=== PATIENT | female | born 1965 | race Caucasian/White ===

== ENCOUNTER → 2017-07-28 19:30 | Outpatient (CLI) | payer MEDICAID, SELFPAY | PROVIDERS: Family Provider Student in an Organized Health Care Education/Training Program; PCP Student in an Organized Health Care Education/Training Program; Visit Provider Student in an Organized Health Care Education/Training Program | DX: G47.33 Obstructive sleep apnea (adult) (pediatric) (principal) | CPT/HCPCS: 95810 ==

== ENCOUNTER → 2017-09-15 20:04 | Outpatient (CLI) | payer MEDICAID, SELFPAY | PROVIDERS: Family Provider Student in an Organized Health Care Education/Training Program; PCP Student in an Organized Health Care Education/Training Program; Visit Provider Student in an Organized Health Care Education/Training Program | DX: G47.33 Obstructive sleep apnea (adult) (pediatric) (principal) | CPT/HCPCS: 95811 ==

== ENCOUNTER 2017-11-20 19:49 | Emergency (ER) | payer MEDICAID, SELFPAY ==
[2017-11-20 19:49] VITALS: BP 150/88; PULSE 79; RESP 15; TEMP 37.1; BMI 45.6
--- NOTE | 2017-11-20 20:10 | RAD_ITS ---
STUDY: X-RAY - LEFT KNEE REASON FOR EXAM: Female, 51 years old. Pain after trauma TECHNIQUE: 3 view(s) of the knee. COMPARISON: None. FINDINGS: Normal visualized distal femur. Normal visualized proximal tibia and fibula. Normal proximal tibiofibular articulation. There is moderate degenerative arthrosis of the medial femorotibial compartment with moderate joint space narrowing. Normal lateral femorotibial compartment. There is moderate degenerative arthrosis of the patellofemoral articulation. The soft tissue structures are unremarkable. RAD/Knee 3 Views IMPRESSION: Degenerative arthrosis. Electronically Signed: Yovany Mendieta MD at 20:35 EDT , Service support ,
--- NOTE | 2017-11-20 20:12 | ED.VISSUMM ---
- ER Visit Summary Date of Service: 11/20/17 Chief Complaint: Left knee pain History of Present Illness: The patient is a 51 F yesterday was working in yard accidentally stepped in a hole and twisted her left knee. Today having more pain. He is able to ambulate but causes increasing pain. No prior history of left knee surgery or significant injury. She has had prior scopes to her right knee secondary to meniscal tear. She denies any hip or ankle pain. Denies other injuries. Physical Examination: Well-appearing middle-age female. Vital signs stable and afebrile. No acute distress. H EENT exam unremarkable. Lungs clear to auscultation. Heart regular rate and rhythm no murmur. Abdomen soft nontender. She is moving all 4 extremities. They are neurovascularly intact. Her left hip ankle and foot are nontender neurovascular intact with normal range of motion. Positive DP pulse. Dorsi plantar flexion intact the left foot. Left knee has pain to palpation over the joint line primarily laterally. There is no significant effusion or swelling. No redness or warmth. ACL, PCL, LCL and MCL all appear to be intact. No bony deformity. She is able to flex and extend. Good endpoints on stressing of the ligaments. Neurologic exam normal. Test Results: Left knee x-ray no acute abnormality. No fracture or dislocation. I did go over the films with the patient. She understands that ligaments, tendons and cartilage injuries are not seen on a plain film. She will follow-up for further evaluation and potentially additional imaging if this does not improve. Emergency Department Course and Treatment: Repeat exam doing well at 2042. Treatment Plan: Follow-up with Dr. Rom Purdy [facility] with orthopedic physician who she is seen for in the past for her right knee. Disposition: Discharge Impression: Acute left knee pain after twisting Left knee sprain rule out internal derangement This note was generated with [employer] dictation software. It may contain incorrect words, spelling, and punctuation that were not noted in review of the chart prior to signing ED Disposition - Plan for ED Patient: Chief Complaint: Lower Extremity Injury Referrals: Magdy Del Cid DO [Primary Care Provider] -
--- NOTE | 2017-11-20 20:45 | ED.DEP ---
ED Disposition - Plan for ED Patient: Disposition: Home or Assisted Living Chief Complaint: Lower Extremity Injury Instructions: ED Sprain Knee Prescriptions: Hydrocodone/Acetaminophen [[place] 7.5-325 Tablet] 1 ea PO Q4H PRN PRN #20 tab PRN Reason: Pain Referrals: Rom Purdy MD [STAFF PHYSICIAN] - As soon as possible Additional Instructions: Ice and elevate left knee. Motrin and limited [place] for pain and inflammation. Use crutches as needed. Follow-up with Dr. Charbel Purdy of [facility] orthopedics for further evaluation and possible advanced imaging if not improving to rule out an internal derangement of the knee.
--- NOTE | 2017-11-20 20:48 | DCINST.ED_ITS ---
ED Disposition - Plan for ED Patient: Disposition: Home or Assisted Living Chief Complaint: Lower Extremity Injury Instructions: ED Sprain Knee Prescriptions: Hydrocodone/Acetaminophen [[place] 7.5-325 Tablet] 1 ea PO Q4H PRN PRN #20 tab PRN Reason: Pain Referrals: Rom Purdy MD [STAFF PHYSICIAN] - As soon as possible Additional Instructions: Ice and elevate left knee. Motrin and limited [place] for pain and inflammation. Use crutches as needed. Follow-up with Dr. Charbel Purdy of [facility] orthopedics for further evaluation and possible advanced imaging if not improving to rule out an internal derangement of the knee.
--- NOTE | 2017-11-20 21:01 | NURSING ---
PT STATES THAT SHE HAS HAD NORCO IN THE PAST AND NO PROBLEMS WITH THIS MEDICATION.
[2017-11-20] MEDS: HYDROcodone Bitartrate/Apap 5/325 Tablet PO (21:09)
== END 2017-11-20 21:10 | disposition home or self-care (01) ==
PROVIDERS: Emergency Provider Emergency Medicine; Family Provider Student in an Organized Health Care Education/Training Program; PCP Student in an Organized Health Care Education/Training Program
DX: S83.92XA Sprain of unspecified site of left knee, initial encounter (principal); X50.1XXA Overexertion from prolonged static or awkward postures, initial encounter; Y93.9 Activity, unspecified; Y92.89 Other specified places as the place of occurrence of the external cause; Y99.9 Unspecified external cause status; E78.00 Pure hypercholesterolemia, unspecified; Z85.528 Personal history of other malignant neoplasm of kidney
CPT/HCPCS: 73562; 99283

== ENCOUNTER 2018-08-10 02:47 | Emergency (ER) | payer MEDICAID, SELFPAY ==
[2018-08-10 02:49] VITALS: BP 166/96; PULSE 84; RESP 15; TEMP 37.5; O2SAT 97; BMI 44.2
[2018-08-10] MEDS: Loperamide 2 MG Capsule 4 MG PO (03:16)
[2018-08-10] MEDS: 0.9% Normal Saline 1,000 ML 999 ML IV (03:17)
[2018-08-10] MEDS: Ondansetron 4 MG/2 ML Vial IV (03:17)
[2018-08-10 03:18] LABS: Anion Gap 10 (5-15); BUN 23 mg/dL (7-18); BUN/Creat Ratio 22.8 RATIO (10-20); Calcium,Total 8.5 mg/dL (8.5-10.1); Chloride 105 mmol/L (98-107); Creatinine, Serum 1.01 mg/dL (0.55-1.02); EST Glomerular Filtration Rate 61 mL/min (>60); Est Glom Filt Rate - Afr Amer 74 mL/min (>60); Estimated Creatinine Clearance 65.73 ml/min; Glucose 119 mg/dL (74-106); Sodium Level 140 mmol/L (136-145)
[2018-08-10 03:19] VITALS: TEMP 37.2
--- NOTE | 2018-08-10 03:59 | ED.VISSUMM ---
- ER Visit Summary Date of Service: 08/10/18 Chief Complaint: Nausea vomiting and diarrhea History of Present Illness: The patient is a 52 F who presents with nausea vomiting diarrhea. This all he began acutely about 6 hours before presentation. She reports greater than 20 episodes of nonbloody nonbilious emesis. She also reports moderate diarrhea. She denies any abdominal pain. She did have some cramping earlier but this is resolved. No fevers. She has had a client with similar symptoms. Physical Examination: Afebrile vitals unremarkable Moist mucous membranes Heart regular rate and rhythm Lungs are clear Abdomen soft Alert Test Results: BMP unremarkable. Emergency Department Course and Treatment: Patient was treated here with IV fluids, Zofran, Imodium. She does feel better on reevaluation. She has had no further vomiting since antiemetics. I explained this is most likely a self-limited viral gastroenteritis. She has Phenergan already at home. She understands to return for new or worsening symptoms. All questions answered bedside. Patient agreeable to this plan was discharged home. Treatment Plan: [] Disposition: Discharge Impression: Gastroenteritis This note was generated with [employer] dictation software. It may contain incorrect words, spelling, and punctuation that were not noted in review of the chart prior to signing ED Disposition - Plan for ED Patient: Instructions: ED Gastroenteritis Viral Referrals: Magdy Del Cid DO [Primary Care Provider] -
[2018-08-10 04:12] VITALS: BP 131/67; PULSE 100; RESP 18; O2SAT 95
== END 2018-08-10 04:50 | disposition home or self-care (01) ==
LOC: ED 03:16
PROVIDERS: Emergency Provider Emergency Medicine; Family Provider Student in an Organized Health Care Education/Training Program; PCP Student in an Organized Health Care Education/Training Program
DX: A08.4 Viral intestinal infection, unspecified (principal); Z72.0 Tobacco use
CPT/HCPCS: 80048; 96361; 96374; 99285; J7030; A4216; J2405

== ENCOUNTER → 2018-11-16 11:20 | Outpatient (CLI) | payer MEDICAID, SELFPAY ==
[2018-11-16 10:53] VITALS: BMI 44.2
[2018-11-16 12:00] LABS: ALB/GLOB Ratio 0.8 RATIO (0.9-2.4); AST(SGOT) 25 U/L (15-37); Alanine Aminotransfer ALT/SGPT 29 U/L (13-56); Albumin, Serum 3.6 g/dL (3.2-5.0); Alkaline Phosphatase 104 U/L (45-117); Anion Gap 5 (5-15); BUN 14 mg/dL (7-18); BUN/Creat Ratio 14.7 RATIO (10-20); Calcium,Total 8.9 mg/dL (8.5-10.1); Chloride 103 mmol/L (98-107); Creatinine, Serum 0.95 mg/dL (0.55-1.02); EST Glomerular Filtration Rate 65 mL/min (>60); Est Glom Filt Rate - Afr Amer 79 mL/min (>60); Globulin 4.3 g/dL (2.2-4.2); Glucose 87 mg/dL (74-106); Potassium 4.2 mmol/L (3.5-5.1); Protein, Total 7.9 g/dL (6.4-8.2); Sodium Level 139 mmol/L (136-145)
[2018-11-16 12:02] LABS: Hematocrit 41.7 % (37-47); Hemoglobin 14.2 g/dl (12.0-15.0); White Blood Count 9.3 K/mm3 (4.4-11.0)
[2018-11-16 12:03] LABS: Mean Corp Hgb Conc 34.1 g/gl (32-36); Mean Corpuscular Hgb 30.9 pg (27.0-32.0); Mean Corpuscular Volume 90.7 fL (81-99); Mean Platelet Vol. 10.5 fl (6.2-12.0); Platelet Count 297 K/mm3 (150-450); RBC Distribution Width CV 12.6 % (11.6-14.6); RBC Distribution Width SD 41.5 fl (35.1-43.9); Scan Indicated on CBC? Y/N NO
== END ==
PROVIDERS: Family Provider Student in an Organized Health Care Education/Training Program; PCP Student in an Organized Health Care Education/Training Program; Referring Provider Surgery; Visit Provider Surgery
DX: K62.5 Hemorrhage of anus and rectum (principal)
CPT/HCPCS: 80053; 85027

== ENCOUNTER 2018-12-07 08:55 | Day surgery (SDC) | payer MEDICAID, SELFPAY ==
--- NOTE | 2018-11-16 03:27 | HP_ITS ---
Intake Vital Signs 11/16/18 Body Mass Index (BMI) 44.2 11/16/18 Height 5 ft 7 in 11/16/18 Weight: 295 lb 11/16/18 Body Mass Index (BMI) 46.2 11/16/18 Blood Pressure 128/85 H 11/16/18 Blood Pressure Location Rt brachial 11/16/18 Respiratory Rate 18 11/16/18 Pulse Rate 71 11/16/18 Pulse Source Monitor 11/16/18 Temperature 98.1 F 11/16/18 Temperature Source Oral 11/16/18 Pulse Ox 96 11/16/18 Oxygen Delivery Method room air Intake Visit Reasons: RECTAL BLEED Attending Ambulatory Care Required: No Is patient in pain?: No Allergies adhesive Adverse Reaction (Verified 11/16/18 10:47) Rash oxycodone HCl [From Percocet] Adverse Reaction (Verified 11/16/18 10:47) Nausea statins Allergy (Mild, Uncoded 08/10/18 02:48) joint pain Medications Docusate Sodium [Colace] 200 mg PO DAILY 11/07/16 [History Confirmed 11/16/18] Ergocalciferol [Vitamin D] 1 cap PO QWEEK 11/07/16 [History Confirmed 11/16/18] Estradiol 1 tab PO DAILY 11/07/16 [History Confirmed 11/16/18] Fexofenadine HCl [Masha Allergy] 180 mg PO DAILY 11/07/16 [History Confirmed 11/16/18] albuterol sulfate HFA 90 mcg/actuation aerosol inhaler 2 puff INHALATION Q6H PRN 10/04/17 [History Confirmed 11/16/18] bupropion HCl XL 300 mg 24 hr tablet, extended release 300 mg PO QAM 10/04/17 [History Confirmed 11/16/18] furosemide 20 mg tablet 20 mg PO DAILY tab 10/04/17 [History Confirmed 11/16/18] polyethylene glycol 3350 17 gram oral powder packet 17 g PO QDAY 10/04/17 [History Confirmed 11/16/18] [facility] Medical History (Updated 11/16/18 @ 15:23 by Sam Nunez MD) Rectal bleeding (Acute) Acid reflux (Chronic) Genital herpes (Chronic) IBS (irritable bowel syndrome) (Chronic) Seasonal allergies (Chronic) Chronic headaches (Chronic) Restless legs (Chronic) Arthritis (Chronic) Edema (Chronic) Vitamin D deficiency (Acute) Obstructive sleep apnea (Chronic) Hyperlipidemia (Chronic) Asthma (Chronic) Allergic rhinitis (Acute) Cancer of kidney (Acute) Constipation (Acute) Depression (Acute) Hemorrhoids (Acute) History of back problems (Acute) Rectal bleeding (Acute) Renal cell carcinoma (Acute) hyposexual desire (Acute) CKD (chronic kidney disease), stage III (Chronic) Rosacea (Chronic) Tubal ligation status (Resolved) Surgical History H/O partial nephrectomy (Resolved) History of cholecystectomy (Resolved) Papilloma of left breast (Resolved) S/P (Resolved) S/P colonoscopy (Resolved) S/P dilation and curettage (Resolved) S/P hernia repair (Resolved) S/P right knee arthroscopy (Resolved) S/P tonsillectomy (Resolved) S/P total hysterectomy (Resolved) bladder sling (Resolved) nipple exploration (Resolved) Family History (Updated 11/16/18 @ 10:46 by Nishi Ovalle) Mother Diabetes Asthma Arthritis Heart disease High cholesterol Grandmother Diabetes Social History (Updated 11/16/18 @ 15:28 by Sam Nunez MD) Smoking Status: Never smoker alcohol intake: current alcohol intake frequency: holidays/special occasions only substance use type: does not use caffeine: Yes what type of physical activity do you participate in: none seatbelt use: always do you feel safe at home: Yes 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 Patient states that with bowel movements she is passing blood per rectum with addition of clots. Colonoscopy dated October 09, 2010 was normal. Colonoscopy dated February 06, 2016 performed because of the family history of colon cancer in a first-degree relative demonstrated grade 2 hemorrhoids. Otherwise normal colon. Follow-up exam at 5 years was recommended based upon family history. The patient was evaluated by Magdy Del Cid. [place] possibly be hemorrhoidal bleeding. It is of note that the patient has a body weight of 295 pounds with a BMI of 44.2. I have assisted the patient the past with surgical breast health issues. She was referred by Dr. Magdy Del Cid for surgical consultation regarding her rectal bleeding and a written compromise surgical consult recommendations will be returned to her. ROS General General: Yes weight change and fatigue; no appetite, colon cancer, breast cancer or weakness HEENT HEENT: No difficulty swallowing, eye injury, eye surgery, swollen glands or hoarseness Endo Endocrine: No thyroid disease, diabetes mellitus, thyroid cancer, Hair loss, heat intolerance or cold intolerance Skin Skin: No rash or changing moles Breast Breast: No left breast lump, right breast lump, nipple discharge, breast pain, abnormal mammogram, abnormal US or breast enlargement Musc Musculoskeletal: Yes back problems and arthritis; no rheumatoid arthritis, gout or joint pain Cardio Cardiovascular: No murmur, pacemaker, heart disease, atrial fibrillation, high blood pressure, heart attack, heart stent, palpitations, shortness of breat with exertion or chest pain Psych Psychiatric: No depression, anxiety or hearing voices Resp Respiratory: Yes shortness of breath, Yes sleep apnea, No cough, No COPD, Yes asthma, No emphysema, No wheezing Gastro Gastrointestinal: No abdominal pain, No nausea or vomiting, No diarrhea, Yes constipation, Yes blood in stool, No acid reflux, Yes hemorrhoids, No ulcers, No gallbladder problem, No black,tarry stools Román Hematologic: No blood thinners, No blood disorders, No bleeding, No anemia, No blood clots Neuro Neurologic: No system reviewed and no additional complaints, except as docu, No as per HPI, No abnormal walking, No abnormal hearing, No abnormal movements, No abnormal speech, No behavioral changes, No burning sensations, No confusion, No seizure-like activity, No unsteadiness, No dizziness, No localized weakness, No frequent falls, No headache(s), No lack of coordination, No loss of vision, No memory loss, No numbness, No other visual disturbances, No radiating pain, No restless legs, No sensory deficit, No fainting, No tingling, No tremor(s), No weakness, No other Exam Const General: cooperative, comfortable, no acute distress Nutritional Appearance: obese morbidly obese Orientation: alert, awake, oriented x3 HENMT Head: normal to inspection Neck Neck: normal visual inspection Chest Breast Palpation: No nipple discharge Resp Effort & Inspection: normal respiratory effort Auscultation: clear to auscultation bilaterally Cardio Rate: regular rate Rhythm: regular rhythm Heart Sounds: no murmurs GI Palpation: soft, no hepatosplenomegaly Auscultation: normal bowel sounds Other: Rectal exam suggests right lateral significant internal fullness. No significant external hemorrhoidal disease Neuro Cognition: normal cognition Extrem General: no calf tenderness bilaterally Psych Affect: normal affect Assessment & Plan Problems 1. Rectal bleeding K62.5 Plan Rectal bleeding and clots. 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 Digital examination is suspicious for bleeding internal hemorrhoids. She does not have a significant external component. This area of induration is quite extensive. I do not believe that hemorrhoidal banding would offer any benefit. I have discussed with her in detail the technique, benefit, risk and alternatives of PPH stapled hemorrhoidopexy in deference to a surgical hemorrhoidectomy. The patient is concerned about the amount of time off of work that would be required for the hemorrhoidectomy. She already takes a stool softener. I recommend that she initiate a fiber supplementation. I also recommended that we obtain a complete metabolic profile today. Because of her body habitus I want to investigate the possibility of [place]. We will look obtain liver function test. I would also like to check a CBC to assure that we do not have a significant anemia. I would propose for her a flexible sigmoidoscopy on the operative table in conjunction with a PPH stapled hemorrhoidal pexy. She is aware of the technique, benefit, risks and alternatives. She is aware of the increased risk of recurrence with the staple technique. We will schedule and proceed at her discretion. I appreciate the ongoing opportunity of assisting with her surgical care. CC: Dr. Magdy Nunez M.D., F.A.C.S. Orders Orders: CBC-Complete Blood Cnt No Diff Today K62.5 Comprehensive Metabolic Profil Today K62.5 Coding Level of Care Code 92572 Diagnoses Rectal bleeding K62.5 11/16/18 1528 <Electronically signed by Sam beltran MD> Date _ Sam Nunez MD I have re-examined the patient. There are no clinical changes since date of exam.
[2018-11-16 10:53] VITALS: BMI 44.2
--- NOTE | 2018-12-06 15:42 | EKG12_ITS ---
Test Reason : PREOP Blood Pressure : / mmHG Vent. Rate : 067 BPM Atrial Rate : 067 BPM P-R Int : 180 ms QRS Dur : 090 ms QT Int : 422 ms P-R-T Axes : 033 -06 -02 degrees QTc Int : 445 ms Normal sinus rhythm Possible Left atrial enlargement Borderline ECG Confirmed by ADRIANA YOST, YUKI ([id number]), editor map JESSE RICH ([id number]) on 12/11/2018 12:59:40 PM Referred By: Sam Nunez Confirmed By:KEL WRIGHT MD
[2018-12-07] VITALS (10 sets, daily range): BP systolic 122–150; BP diastolic 78–97; PULSE 68–78; RESP 16–20; TEMP 36.2–37.2; O2SAT 94–100; BMI 43.4
--- NOTE | 2018-12-07 | HEM_PTH ---
PATIENT: CHRIS PANTOJA LOC: [facility] [place] U#:[id number] AGE/SX: 53/F ROOM: RE12/07/[address]: Dr. Sam Nunez MD : 1965 BED: DIS: 12/07/2018 SPEC #: [id number] RECD: 12/07/18 16:00 STATUS: ONI DENNY #: [id number] KYLAH: 12/07/18 00:[address]: Sam Nunez DEPT: SURGICAL PATHOLOGY RECD BY: Kenji Alicia ENTERED: 12/08/18 08:03 SP TYPE: HEMORRHOID OTHR DR: Dr. Magdy Del Cid, DO Tissues: HEMORRHOIDS Procedures: Surgery Specimen Level III HEADER OPERATION: Flexible sigmoidoscopy PRE-OP DIAGNOSIS: Rectal bleeding TISSUE SUBMITTED: Hemorrhoid MICROSCOPIC DIAGNOSIS Hemorrhoid: A piece of colonic mucosa with focal dilated and congested blood vessels, consistent with hemorrhoid with focal area of hemorrhage. Focal hyperplastic changes. SJ:reno 12/11/18 MICROSCOPIC DESCRIPTION Slides are reviewed. GROSS DESCRIPTION Received in fixative is one container labeled with the patient's name and designated hemorrhoid. The specimen consists of an irregular fragment of glistening, dominique mucosa measuring 5.5 x 2.5 x 1 cm. No mucosal mass lesions are identified. Shank Threader sections are submitted in one cassette. / AM:reno 12/08/18 TC:5 CPT: 88614
--- NOTE | 2018-12-07 11:00 | COLBX_PTH ---
PATIENT: CHRIS PANTOJA LOC: [facility] [place] U#:[id number] AGE/SX: 53/F ROOM: RE12/07/[address]: Dr. Sam Nunez MD : 1965 BED: DIS: 12/07/2018 SPEC #: [id number] RECD: 12/07/18 11:56 STATUS: ONI DENNY #: [id number] KYLAH: 12/07/18 11:[address]: Sam Nunez DEPT: SURGICAL PATHOLOGY RECD BY: Kenji Alicia ENTERED: 12/07/18 13:34 SP TYPE: COLON BX OTHR DR: Dr. Magdy Del Cid, DO Tissues: Sigmoid colon biopsy Procedures: Surgery Specimen Level IV HEADER OPERATION: Flexible sigmoidoscopy PRE-OP DIAGNOSIS: Rectal bleeding TISSUE SUBMITTED: Mid sigmoid biopsy MICROSCOPIC DIAGNOSIS Mid sigmoid colon, biopsy: Acute colitis. See comment. AM:reno 12/08/18 COMMENT Sections show cryptitis and focal crypt abscesses. There is no significant glandular distortion. Fissuring ulcers are not seen. No granulomas are identified. Clinical correlation is suggested. MICROSCOPIC DESCRIPTION Slides are reviewed. GROSS DESCRIPTION Received in fixative is one container labeled with the patient's name and designated mid sigmoid biopsy. The specimen consists of multiple irregular fragments of light dominique soft tissue that in aggregate measure 0.5 x 0.4 x 0.1 cm. The specimen is totally submitted in one cassette. / SJ:reno 12/07/18 TC:2 CPT: 37355
[2018-12-07] MEDS: Lubricating Jelly 60 GM Tube 30 GM TOPICAL (11:25)
[2018-12-07] MEDS: BUPIVACAINE LIPOSOME/PF 20 ML VIAL OPERA.SITE (11:39)
[2018-12-07] MEDS: Bupivacaine Mpf 0.5% 30 ML VIAL (11:39)
[2018-12-07] MEDS: Dibucaine 30 GM Tube 1 APPLIC (11:48)
--- NOTE | 2018-12-07 12:21 | DCINST_ITS ---
Discharge Diet: No Restrictions Discharge Activity: Return to Normal Activity, May Not Drive - while you are taking narcotic pain medications. Do not drive, work with heavy equipment or sign legal documents for 24 hours after your surgery., May Shower, May Take a Tub Bath Additional Activity Instructions:: You may utilize a sitz baths in warm soapy water as needed for comfort. I encouraged drinking plenty of fluids. Utilize your fiber supplementation with a large glass of fluid daily. Try to avoid constipation and straining. I encouraged utilization of [id number]-[id number]-[id number] medicines like Tylenol/Advil/Aleve/acetaminophen/ibuprofen as needed for pain. [place] the prescription medicine for more significant discomfort as it can cause constipation Allergies/Adverse Reactions: Allergies adhesive Adverse Reaction (Verified 11/30/18 14:52) Rash oxycodone HCl [From Percocet] Adverse Reaction (Verified 11/30/18 14:52) Nausea statins Allergy (Mild, Uncoded 11/30/18 14:52) joint pain Medications to take at Discharge Docusate Sodium [Colace] 200 mg PO DAILY 11/07/16 Ergocalciferol [Vitamin D] 1 cap PO QWEEK 11/07/16 Estradiol 1 tab PO DAILY 11/07/16 Fexofenadine HCl [Masha Allergy] 180 mg PO DAILY 11/07/16 albuterol sulfate HFA 90 mcg/actuation aerosol inhaler 2 puff INHALATION Q6H PRN 10/04/17 bupropion HCl XL 300 mg 24 hr tablet, extended release 300 mg PO QAM 10/04/17 furosemide 20 mg tablet 20 mg PO DAILY tab 10/04/17 polyethylene glycol 3350 17 gram oral powder packet 17 g PO PRN PRN 10/04/17 Hydrocodone Bitart/Apap 5-325 [[place] 5MG-325MG] 1 tablet PO Q4H PRN PRN 3 Days #10 tablet 12/07/18 Metronidazole 500 mg PO TID #21 tab 12/07/18 Psyllium [Metamucil] 1 packet PO DAILY #90 packet 12/07/18 The following prescriptions were given: Psyllium [Metamucil] 1 packet PO DAILY #90 packet Transmission Status: Pending to [id number] Metronidazole 500 mg PO TID #21 tab Transmission Status: Pending to [id number] Hydrocodone Bitart/Apap 5-325 [[place] 5MG-325MG] 1 tablet PO Q4H PRN PRN 3 Days #10 tablet PRN Reason: Pain Transmission Status: Received by [id number] Primary Care Physician: Magdy Del Cid DO [Primary Care Provider] - Test Results: Test results from this visit will be discussed in further detail at your follow- up appointment, if applicable. Please Follow Up With: Sam Nunez MD - [phone] When: Plan to have a follow up approximately 3 weeks after surgery.
--- NOTE | 2018-12-07 12:23 | PCM.OPRPT ---
Problem List (1) Rectal bleeding Status: Acute Report of Operation Date of Procedure: 12/07/18 Pre-Operative Diagnosis: Rectal bleeding secondary to bleeding internal hemorrhoids Post-Operative Diagnosis: Rectal bleeding secondary to bleeding internal hemorrhoids. Possible focal mid sigmoid colitis Surgery/Procedure Performed:: Flexible sigmoidoscopy with mid sigmoid biopsy. PPH stapled hemorrhoidopexy Description of Surgical Findings:: Timeout and informed consent was obtained. 53-year-old female was taken to the operating room. She was initially placed in a left lateral decubitus position. Flexible sigmoidoscopy performed as documented in probation. Some mild erythema and edema of the mid sigmoid was noted and biopsies obtained. No active bleeding. Subsequently she placed in a prone jackknife position. Throughout all of this procedure she underwent monitored anesthesia care and local anesthetic. At the beginning of this by the procedure she should receive 2 g of cefotetan and intravenously. Digital exam and inspection revealed exuberant internal hemorrhoids. The PPH stapling suturing device was inserted and a 0 Prolene was performed in a in and out pursestring suture circumferentially around the rectum at 4 cm from the anal verge. It was tested and noted to be circumferentially intact. A sterile glove was used to check the vaginal vault and there was no involvement. The stapler was inserted and the pursestring was snugged up to the stapler and the stapler was closed. The stapler was fired after repeat checking the vaginal vault. Several minutes were allowed to ensue the stapler was removed and resection was achieved except there was one area of opening of the donor I put an operating speculum back in position and it appeared that anteriorly over approximately centimeter there has been lack of incorporation of that mucosa there. I then utilized a 2-0 chromic and in a running fashion I completely reinforce the entire staple line circumferentially. Repeat visualization and palpation demonstrated the staple line and suture line to be completely intact. Hemostasis was completely intact. I felt that I had the past bulk of the internal hemorrhoidal disease treated nicely. Dibucaine ointment was placed on Gelfoam and inserted into the rectum. It is of note that prior to starting the PPH stapled hemorrhoidal pexy I utilized Exparel diluted with 30 cc of 0.5% Marcaine and I carefully injected that circumferentially completely around the anal rectum aspirating carefully to ensure no venous injection. I utilized all of that solution prior to proceeding with the PPH component and this of course facilitated the monitored anesthesia care local portion of this procedure. Specimen includes the stapled portion of the hemorrhoidal pexy. Drains none. Blood loss minimal. The patient was taken to the recovery area in satisfactory condition. Sam Nunez M.D., F.A.C.S. Type of Anesthesia:: Local MAC Anesthesiologist: Reji Katz
--- NOTE | 2018-12-07 12:39 | OP.ENDO_ITS ---
12/07/2018 Magdy Del Cid [address] [id number] Re : Flexible Sigmoidoscopy procedure for Sherron Rodgers Dear Dr. Del Cid This procedure was performed on December. My impressions and recommendations are as follows: Impressions : - Non-thrombosed external hemorrhoids, non-thrombosed internal hemorrhoids and internal hemorrhoids that prolapse with straining, but require manual replacement into the anal canal (Grade III) found on digital rectal exam. - Diverticulosis in the sigmoid colon and in the descending colon. - Localized mild inflammation was found in the mid sigmoid colon. Biopsied. Recommendations : - Use fiber, for example Citrucel, Fibercon, Konsyl or Metamucil. - Discharge patient to home. - Resume previous diet. My findings are described in the full procedure note, which is enclosed. If I can be of further assistance, please feel free to contact me at Doctor phone number(s): Work: . Sincerely, Sam Nunez MD 12/07/2018 12:39:26 PM This report has been signed electronically.
[2018-12-07] MEDS: HYDROcodone Bitartrate/Apap 5/325 Tablet PO (14:43)
== END 2018-12-07 15:42 | disposition home or self-care (01) ==
LOC: SDC 08:55 → AC 08:56
PROVIDERS: Family Provider Student in an Organized Health Care Education/Training Program; PCP Student in an Organized Health Care Education/Training Program; Referring Provider Surgery; Visit Provider Surgery
PROC: (CPT 46947; principal; 2018-12-07 10:45)
PROC: 0DJD8ZZ Inspection of Lower Intestinal Tract, Via Natural or Artificial Opening Endoscopic (ICD-10-PCS; CPT 45330; principal; 2018-12-07 10:55)
DX: K64.8 Other hemorrhoids (principal); K64.4 Residual hemorrhoidal skin tags; K57.30 Diverticulosis of large intestine without perforation or abscess without bleeding; K52.9 Noninfective gastroenteritis and colitis, unspecified; E66.01 Morbid (severe) obesity due to excess calories; Z68.41 Body mass index [BMI] 40.0-44.9, adult; Z80.0 Family history of malignant neoplasm of digestive organs; G47.33 Obstructive sleep apnea (adult) (pediatric); N18.3 Chronic kidney disease, stage 3 (moderate); E78.5 Hyperlipidemia, unspecified; K21.9 Gastro-esophageal reflux disease without esophagitis
CPT/HCPCS: 45331; 46947; 88304; 88305; 93005; J7120; J2405; J3490

== ENCOUNTER → 2019-10-18 17:00 | Outpatient (CLI) | payer MEDICAID, SELFPAY ==
[2019-07-25 15:06] VITALS: BMI 43.4
== END ==
PROVIDERS: PCP Student in an Organized Health Care Education/Training Program
DX: Z20.828 Contact with and (suspected) exposure to other viral communicable diseases (principal)
CPT/HCPCS: 87635; G2023; U0003

== ENCOUNTER → 2019-12-28 17:51 | Outpatient (CLI) | payer MEDICAID, SELFPAY ==
[2019-07-25 15:06] VITALS: BMI 43.4
== END ==
PROVIDERS: PCP Student in an Organized Health Care Education/Training Program; Referring Provider Family Medicine; Visit Provider Family Medicine
DX: Z11.59 Encounter for screening for other viral diseases (principal)
CPT/HCPCS: 87635; 94799; U0003

== ENCOUNTER 2021-05-02 18:12 | Emergency (ER) | payer MEDICAID, SELFPAY ==
[2021-05-02 18:13] VITALS: BP 160/110; PULSE 89; RESP 18; TEMP 35.8; O2SAT 94; BMI 49.0
--- NOTE | 2021-05-02 18:43 | EDS_ITS ---
HPI HPI - URI History of Present Illness Chief Complaint: Shortness of Breath Informant: patient Narrative Narrative: Patient is a 55-year-old female with history of asthma, obstructive sleep apnea and colitis presenting for approximately 24 hours of cold/flulike symptoms. Patient states last night she started to feel more thirsty and her mouth was dry. She started coughing and having nasal congestion as well as her ears feeling sore. She checked her pulse ox last night and it did not go below 93. She had another bad episode of coughing prior to arrival and came in. She states her cough is been productive of yellow, green and clear sputum. Her granddaughter was diagnosed with a viral syndrome earlier this week. Patient denies any myalgias, fever, nausea, vomiting or diarrhea. Patient states she is concerned she has pneumonia. ROS ROS ED Constitutional Constitutional ED: Denies chills or fever(s) Eyes Eyes: Denies change in vision ENT ENT ED: Reports ear pain, sore throat and other Details: Nasal congestion ; Denies rhinorrhea Cardiovascular Cardiovascular: Denies chest pain or palpitations Respiratory/Chest Respiratory/Chest: Reports cough and sputum; Denies dyspnea Gastrointestinal Gastrointestinal: Denies abdominal pain, diarrhea, nausea or vomiting Musculoskeletal Musculoskeletal: Denies arthralgias or myalgias Integumentary Denies rash Neurologic Neurologic: Denies headache(s) or weakness Psychiatric Psychiatric: Denies depression [facility] Medical History Acid reflux Acute colitis Allergic rhinitis Arthritis Asthma Bleeding internal hemorrhoids Cancer of kidney Chronic headaches CKD (chronic kidney disease), stage III Constipation Depression Edema Genital herpes Hemorrhoids History of back problems Hyperlipidemia hyposexual desire IBS (irritable bowel syndrome) Obstructive sleep apnea Rectal bleeding Rectal bleeding Renal cell carcinoma Restless legs Rosacea Seasonal allergies Vitamin D deficiency Home Medications ergocalciferol (vitamin D2) 1 cap PO QWEEK 11/07/16 [History Last Taken Unknown] fexofenadine 180 mg PO DAILY 11/07/16 [History Last Taken Unknown] albuterol sulfate 90 mcg/actuation aerosol inhaler 2 puff INHALATION Q6H PRN 10/04/17 [History Last Taken Unknown] fluoxetine 20 mg capsule 20 mg PO DAILY 07/25/19 [History Last Taken Unknown] codeine-guaifenesin [Guaifenesin AC] 5 ml PO Q6H PRN #118 ml 05/02/21 [Rx Last Taken Unknown] Allergy/AdvReac Type Severity Reaction Status Date / Time adhesive AdvReac Rash Verified 05/02/21 18:12 oxycodone HCl [From Percocet] AdvReac Nausea Verified 05/02/21 18:12 statins Allergy Mild joint pain Uncoded 05/02/21 18:12 Family History Mother Diabetes Asthma Arthritis Heart disease High cholesterol Grandmother Diabetes Surgical History bladder sling H/O partial nephrectomy History of cholecystectomy nipple exploration Papilloma of left breast S/P S/P colonoscopy S/P dilation and curettage S/P hemorrhoidectomy S/P hernia repair S/P right knee arthroscopy S/P tonsillectomy S/P total hysterectomy Tubal ligation status Social History Smoking Status: Former smoker alcohol intake: current alcohol intake frequency: holidays/special occasions only substance use type: does not use caffeine: Yes what type of physical activity do you participate in: none seatbelt use: always do you feel safe at home: Yes additional social history: - [facility] emergency custody of 2 year old grand daughter EXAM Physical Exam Const Vital Signs: 05/02/21 18:13 05/02/21 19:04 Temperature 96.5 F L Temperature Source Temporal Pulse Rate 89 Respiratory Rate 18 Respiratory Effort Normal Short of Breath Respiratory Depth Normal Respiratory Pattern Normal Blood Pressure 160/110 H Blood Pressure Mean 126 Pulse Ox 94 Oxygen Delivery Method Room Air Room Air Positive well nourished and well developed General Appearance ED: well developed HEENT Reports moist mucous membranes normocephalic and atraumatic External Ear: external ears normal External Auditory Canal: EAC's normal Tympanic Membrane ED: Yes TM abnormal erythematous and other (No air-fluid level, loss of landmarks or retraction/bulging of the TMs appreciated) Throat: posterior oropharynx normal Eyes PERRL and EOMs intact bilaterally Neck supple, no meningeal signs and no JVD Resp normal respiratory effort Auscultation: diminished lung sounds left lower; Negative for rhonchi or wheezes Cardio no murmurs Rate: regular rate Rhythm: regular rhythm GI non-tender and non-distended Palpation: soft Extremity normal to inspection and full ROM Neuro oriented x3 Sensorium / Orientation: alert Motor Exam: Negative for general weakness Psych mental status grossly normal Skin Lesions: no lesions Rashes: no rashes MDM MDM MDM Narrative Medical decision making narrative: Patient evaluated for cough and upper respiratory symptoms. Presentation most consistent with bronchitis/viral syndrome. Covid test is negative. Chest x-ray does not show any acute process or infiltrate. Patient has stable vital signs. She is mildly hypertensive but I do not suspect hypertensive emergency or thing that needs to be addressed at this time given she is currently unwell feeling. Will discharge with pres cription for cough medicine and symptomatic treatment. Patient states she has a butyryl at home she can use as needed. She is instructed to follow-up with her primary care doctor next week. She is counseled return precautions. Patient discharged home in stable condition. Radiography Chest X-Ray - ED: 2 View, Read by ED Physician, Read by Radiologist and No Acute Disease Diagnostic Testing: Clinical Impression(s) from Imaging Studies Chest X-Ray 05/02/21 18:50 IMPRESSION: No acute radiographic abnormalities. Electronically Signed: Jonnathan Lovett MD at 19:04 EST Tel , Service support , Discharge Plan Triage Chief Complaint: Shortness of Breath ED Provider: Yokasta Wynn Dx/Rx/DC Orders Clinical Impression: Bronchitis, Acute viral syndrome Instructions: ED Bronchitis, No Antibiotic (Adult), ED Viral Syndrome (Adult) Prescriptions: New codeine-guaifenesin [Guaifenesin AC] 10-100 mg/5 mL liquid 5 ml PO Q6H PRN (Reason: cough) Qty: 118 RF: 0 No Action albuterol sulfate 90 mcg/actuation HFA aerosol inhaler 2 puff INHALATION Q6H PRN (Reason: Shortness Of Breath) RF: 0 fluoxetine [Prozac] 20 mg capsule 20 mg PO DAILY RF: 0 fexofenadine 180 MG tablet 180 mg PO DAILY RF: 0 ergocalciferol (vitamin D2) 50,000 UNIT capsule 1 cap PO QWEEK RF: 0 Primary Care Provider: Magdy Del Cid Referrals: Magdy Del Cid DO [Primary Care Provider] - Disposition Disposition: Home, Self Care
--- NOTE | 2021-05-02 18:50 | RAD_ITS ---
INDICATION: cough EXAMINATION/TECHNIQUE: X-RAY - XR Chest 2 Views COMPARISON: 05/13/2011. FINDINGS: The lungs are clear. The cardiomediastinal silhouette is unremarkable. No pleural effusion or pneumothorax. No acute osseous abnormalities. RAD/Chest PA and Lateral IMPRESSION: No acute radiographic abnormalities. Electronically Signed: Jonnathan Lovett MD at 19:04 EST Tel , Service support ,
[2021-05-02 19:04] VITALS: O2SAT 95
[2021-05-02] MEDS: guaiFENesin/Codeine 5 ML UDC 10 ML PO (19:52)
[2021-05-02 19:53] VITALS: PULSE 78; RESP 21; O2SAT 96
== END 2021-05-02 20:09 | disposition home or self-care (01) ==
PROVIDERS: Emergency Provider Emergency Medicine; PCP Student in an Organized Health Care Education/Training Program
DX: J40 Bronchitis, not specified as acute or chronic (principal); B34.9 Viral infection, unspecified; G47.33 Obstructive sleep apnea (adult) (pediatric); Z87.891 Personal history of nicotine dependence; N18.30 Chronic kidney disease, stage 3 unspecified; E78.5 Hyperlipidemia, unspecified; K58.9 Irritable bowel syndrome, unspecified
CPT/HCPCS: 71046; 87426; 99282

== ENCOUNTER 2021-11-01 20:40 | Emergency (ER) | payer MEDICAID, SELFPAY ==
[2021-11-01 20:41] VITALS: BP 145/112; PULSE 105; RESP 16; TEMP 36.8; O2SAT 95; BMI 49.0
--- NOTE | 2021-11-01 21:04 | RAD_ITS ---
STUDY: X-RAY - LEFT KNEE REASON FOR EXAM: Female, 55 years old. PAIN TECHNIQUE: 2 view(s) of the knee. COMPARISON: None. FINDINGS: Normal visualized distal femur. Normal visualized proximal tibia and fibula. Normal proximal tibiofibular articulation. There is moderate degenerative arthrosis of the medial femorotibial compartment with moderate joint space narrowing. There is mild degenerative arthrosis of the lateral femorotibial compartment. There is moderate degenerative arthrosis of the patellofemoral articulation. The soft tissue structures are unremarkable. RAD/Knee 1 or 2 Views IMPRESSION: Degenerative arthrosis. Electronically Signed: Luis Carlos Calloway MD at 21:23 EDT ,
--- NOTE | 2021-11-01 22:43 | EDS_ITS ---
HPI History of Present Illness Chief Complaint: Lower Extremity Injury Associated Symptoms Associated Symptoms: Negative for Parasthesia or Loss of Funtion Narrative Narrative: 1 week or less to gradually worsening left knee pain when she bends it to stand up from sitting position that hurts, weightbearing, bending it to extremes. Feels like it is swollen. Hurts all the way around. No injury. Has arthritis in the right knee and had a fracture, was offered an injection of some type but was scared. She was told that she needed a knee replacement on the right 1 but that she needed to lose some weight first. Has an appointment with orthopedics but it is not until December. [facility] Medical History Acid reflux Acute colitis Allergic rhinitis Arthritis Asthma Bleeding internal hemorrhoids Cancer of kidney Chronic headaches CKD (chronic kidney disease), stage III Constipation Depression Edema Genital herpes Hemorrhoids History of back problems Hyperlipidemia hyposexual desire IBS (irritable bowel syndrome) Obstructive sleep apnea Rectal bleeding Rectal bleeding Renal cell carcinoma Restless legs Rosacea Seasonal allergies Vitamin D deficiency Home Medications ergocalciferol (vitamin D2) 1,250 mcg (50,000 unit) capsule 1 cap PO QWEEK 0 11/07/16 [History Last Taken Unknown] fluoxetine 20 mg capsule (Prozac) 20 mg PO DAILY 07/25/19 [History Last Taken Unknown] furosemide 20 mg tablet 1 tab PO DAILY 11/01/21 [History Last Taken Unknown] meloxicam 15 mg tablet 15 mg PO DAILY #30 tabs 11/01/21 [Rx Last Taken Unknown] Allergy/AdvReac Type Severity Reaction Status Date / Time adhesive AdvReac Rash Verified 11/01/21 20:43 hornet venom AdvReac Nausea Verified 11/01/21 22:06 oxycodone HCl [From Percocet] AdvReac Nausea Verified 11/01/21 20:43 statins Allergy Mild joint pain Uncoded 11/01/21 20:43 Family History Mother Diabetes Asthma Arthritis Heart disease High cholesterol Grandmother Diabetes Surgical History bladder sling H/O partial nephrectomy History of cholecystectomy nipple exploration Papilloma of left breast S/P S/P colonoscopy S/P dilation and curettage S/P hemorrhoidectomy S/P hernia repair S/P right knee arthroscopy S/P tonsillectomy S/P total hysterectomy Tubal ligation status Social History Smoking Status: Former smoker alcohol intake: current alcohol intake frequency: holidays/special occasions only substance use type: does not use caffeine: Yes what type of physical activity do you participate in: none seatbelt use: always do you feel safe at home: Yes additional social history: - [facility] emergency custody of 2 year old grand daughter ROS ROS ED Constitutional Constitutional ED: Denies chills or fever(s) Musculoskeletal Musculoskeletal: Reports extremity pain; Denies neck pain Integumentary Denies Abrasions, rash or wounds Neurologic Neurologic: Denies paresthesias or weakness EXAM Physical Exam Const Vital Signs: 11/01/21 20:41 Temperature 98.2 F Temperature Source Temporal Pulse Rate 105 H Respiratory Rate 16 Blood Pressure 145/112 H Blood Pressure Mean 123 Pulse Ox 95 Oxygen Delivery Method Room Air Positive well nourished, well developed and obese General Appearance ED: well developed and NAD Nutritional Appearance: obese Neck full ROM and supple Back/Spine normal ROM and normal to inspection Extremity normal to inspection Extremity Narrative: Limited range of motion left knee, able to flex to about 60 degrees. All ligaments stable with short endpoints, joint is stable. Extensor mechanism intact. No deformities. Possibly mild swelling/effusion on the left but difficult to tell asymmetry due to obesity. No excessive warmth, no erythema or other skin abnormalities. No bony tenderness. Neuro oriented x3, no focal motor deficits and no sensory deficits noted Sensorium / Orientation: alert Psych mental status grossly normal and thought process normal Skin no wounds Rashes: no rashes MDM MDM MDM Narrative Medical decision making narrative: 2 view x-rays of the left knee were obtained and on my interpretation show no acute abnormality. According to radiology, degenerative changes are noted. I think she probably has a small effusion release, since she is having trouble bending it all the way. I am guessing that arthritis is the cause of her pain, but as I discussed with her not able to rule out meniscus injuries/tears/causes. She is not examining or having symptoms of an acute ligamentous injury. Ross wrap, anti-inflammatories prescribed, orthopedic follow-up. She already has crutches. She said she did not have any medical problems or history of internal bleeding or stomach ulcers, but I see she has a history of chronic kidney disease. I think putting her on Mobic for 1 month should be safe here. Radiography Diagnostic Testing: Clinical Impression(s) from Imaging Studies Knee X-Ray 11/01/21 21:04 IMPRESSION: Degenerative arthrosis. Electronically Signed: Luis Carlos Calloway MD at 21:23 EDT , Discharge Plan Triage Chief Complaint: Lower Extremity Injury ED Provider: Rom Abbasi Dx/Rx/DC Orders Clinical Impression: Acute pain of left knee, Effusion of left knee, Arthritis of left knee Instructions: ED Knee Effusion Prescriptions: New meloxicam 15 mg tablet 15 mg PO DAILY Qty: 30 0RF No Action fluoxetine [Prozac] 20 mg capsule 20 mg PO DAILY ergocalciferol (vitamin D2) 50,000 UNIT capsule 1 cap PO QWEEK Label Comments: Take 1 capsule by mouth once each week. SUNDAYS furosemide 20 mg tablet 1 tab PO DAILY Primary Care Provider: Magdy Del Cid Referrals: Rom Purdy MD [NON-STAFF] - As soon as possible Magdy Del Cid, [Primary Care Provider] - Disposition Disposition: Home, Self Care
[2021-11-01 22:52] VITALS: RESP 18
[2021-11-01] MEDS: Naproxen 250 MG Tablet 500 MG PO (22:52)
== END 2021-11-01 23:01 | disposition home or self-care (01) ==
PROVIDERS: Emergency Provider Emergency Medicine; PCP Student in an Organized Health Care Education/Training Program; Visit Provider Emergency Medicine
DX: M25.462 Effusion, left knee (principal); N18.30 Chronic kidney disease, stage 3 unspecified; M17.0 Bilateral primary osteoarthritis of knee; E78.5 Hyperlipidemia, unspecified; Z87.891 Personal history of nicotine dependence; Z96.651 Presence of right artificial knee joint; E66.9 Obesity, unspecified; G47.33 Obstructive sleep apnea (adult) (pediatric)
CPT/HCPCS: 73560; 99283

== ENCOUNTER 2022-08-01 02:50 | Emergency (ER) | payer MEDICAID, SELFPAY ==
[2022-08-01 02:52] VITALS: BP 188/99; PULSE 74; RESP 17; TEMP 37.1; O2SAT 99; BMI 50.1
[2022-08-01 03:08] VITALS: BP 188/99; PULSE 74; RESP 17; O2SAT 99
--- NOTE | 2022-08-01 03:08 | EX.ED.DYSGE1 ---
HPI History of Present Illness Chief Complaint: Dental Narrative Narrative: Patient is a 56-year-old female with past medical history of obstructive sleep apnea hyperlipidemia and asthma. She reports that she has had a broken tooth for quite some time. She states it typically does not bother her but over the last 1 to 2 days she has had increased pain that is now constant in nature and some facial swelling. She denies any fevers or chills difficulty breathing or swallowing or trauma. She states she is having difficulty sleeping because of the increased pain and is concerned for infection and therefore comes in for evaluation. [facility] Medical History Acid reflux Acute colitis Allergic rhinitis Arthritis Asthma Bleeding internal hemorrhoids Cancer of kidney Chronic headaches CKD (chronic kidney disease), stage III Constipation Depression Edema Genital herpes Hemorrhoids History of back problems Hyperlipidemia hyposexual desire IBS (irritable bowel syndrome) Obstructive sleep apnea Rectal bleeding Rectal bleeding Renal cell carcinoma Restless legs Rosacea Seasonal allergies Vitamin D deficiency Home Medications ergocalciferol (vitamin D2) 1,250 mcg (50,000 unit) capsule 1 cap PO QWEEK 11/07/16 [History Last Taken Unknown] fluoxetine 20 mg capsule (Prozac) 20 mg PO DAILY 07/25/19 [History Last Taken Unknown] furosemide 20 mg tablet 1 tab PO DAILY 11/01/21 [History Last Taken Unknown] meloxicam 15 mg tablet 15 mg PO DAILY #30 tabs 11/01/21 [Rx Last Taken Unknown] clindamycin HCl 300 mg capsule (Cleocin HCl) 300 mg PO 4X/DAY 10 days #40 CAPSULES 08/01/22 [Rx Last Taken Unknown] hydrocodone-acetaminophen 5-325mg 5mg-325mg 1 tab PO Q6H PRN PRN Pain 3 days #12 TABLETS 08/01/22 [Rx Last Taken Unknown] Allergy/AdvReac Type Severity Reaction Status Date / Time [id number] Reductase AdvReac Mild Pain in Verified 08/01/22 02:51 Inhibitor joints adhesive AdvReac Rash Verified 08/01/22 02:51 hornet venom AdvReac Nausea Verified 08/01/22 02:51 oxycodone HCl [From Percocet] AdvReac Nausea Verified 08/01/22 02:51 Family History Mother Diabetes Asthma Arthritis Heart disease High cholesterol Grandmother Diabetes Surgical History (Updated 12/06/21 @ 09:20 by Maddie Clifford) bladder sling H/O partial nephrectomy History of cholecystectomy nipple exploration Papilloma of left breast S/P S/P colonoscopy S/P dilation and curettage S/P hemorrhoidectomy S/P hernia repair S/P right knee arthroscopy S/P tonsillectomy S/P total hysterectomy Tubal ligation status Social History Smoking Status: Former smoker alcohol intake: current alcohol intake frequency: holidays/special occasions only substance use type: does not use caffeine: Yes what type of physical activity do you participate in: none seatbelt use: always do you feel safe at home: Yes additional social history: - [facility] emergency custody of 2 year old grand daughter ROS ROS ED Constitutional Constitutional ED: Denies chills or fever(s) ENT ENT ED: Reports other Details: Positive dental pain and facial swelling ; Denies sore throat Cardiovascular Cardiovascular: Denies chest pain Respiratory/Chest Respiratory/Chest: Denies cough or dyspnea Gastrointestinal Gastrointestinal: Denies abdominal pain, diarrhea, nausea or vomiting Genitourinary Genitourinary ED: Denies dysuria Musculoskeletal Musculoskeletal: Denies myalgias or neck pain Integumentary Denies rash Neurologic Neurologic: Denies headache(s) Hematologic/Lymphatic Hematologic/Lymphatic: Denies easy bleeding or easy bruising EXAM Physical Exam Const Vital Signs: 08/01/22 02:52 Temperature 98.8 F Temperature Source Temporal Pulse Rate 74 Respiratory Rate 17 Blood Pressure 188/99 H Blood Pressure Mean 128 Pulse Ox 99 Oxygen Delivery Method Room Air Positive well nourished, well developed and obese General Appearance ED: well developed Nutritional Appearance: obese HEENT Reports TM's clear and moist mucous membranes HEENT Narrative: Patient has dental caries present without obvious dental abscess formation. There is mild soft tissue swelling along the medial/nasal aspect of the left cheek near the nasolabial fold without obvious induration or fluctuance or lymphangitic streak. No oral lesions no airway edema or compromise Tympanic Membrane ED: Yes TM's clear Eyes PERRL and EOMs intact bilaterally Neck supple Neck Narrative: Positive anterior cervical lymphadenopathy on left No brawny edema in the submental space to suggest Shahid's angina Resp normal respiratory effort and clear to auscultation bilaterally Cardio regular rate and regular rhythm Extremity normal to inspection Neuro oriented x3 and CN's II-XII intact bilaterally Sensorium / Orientation: alert Psych mental status grossly normal Skin no rashes or lesions noted MDM MDM MDM Narrative Medical decision making narrative: Patient presented to the ER afebrile and in no acute distress. Her report of increasing dental pain with facial swelling is concern for dental infection versus dental abscess versus Shahid's angina or cellulitis. On exam there is no area of induration or fluctuance to suggest a drainable fluid collection. She has no airway edema or compromise and no signs of respiratory distress. Nor is there any brawny edema in the submental space. Therefore at this time her symptoms and exam is most consistent with underlying dental infection but as there is no abscess or signs of systemic infection or respiratory distress she be given symptomatic medications and discharged. We did discuss a dental block in the ER to help control her pain but patient did not want the injection at this time. Therefore should be started on clindamycin for infection especially as she reports taking amoxicillin roughly 3 to 4 weeks ago for another type of infection and placed on a few days of [place] for pain control. History & Record Review Discussion w/independent historian: Patient Discharge Plan Triage Chief Complaint: Dental ED Provider: Kal Mcfadden Dx/Rx/DC Orders Clinical Impression: Dental caries, Dental infection, Hyperlipidemia Instructions: ED Dental Pain, ED Dental Abscess Prescriptions: New clindamycin HCl [Cleocin HCl] 300 mg capsule 300 mg PO 4X/DAY 10 Days Qty: 40 0RF hydrocodone-acetaminophen 5-325 mg tablet 1 tab PO Q6H PRN PRN (Reason: Pain) 3 Days Qty: 12 0RF No Action fluoxetine [Prozac] 20 mg capsule 20 mg PO DAILY ergocalciferol (vitamin D2) 50,000 UNIT capsule 1 cap PO QWEEK Label Comments: Take 1 capsule by mouth once each week. SUNDAYS furosemide 20 mg tablet 1 tab PO DAILY meloxicam 15 mg tablet 15 mg PO DAILY Qty: 30 0RF Primary Care Provider: Magdy Del Cid Referrals: Magdy Del Cid DO [Primary Care Provider] - Activity Restrictions/Additional Instructions: Please follow-up with your dentist for repeat evaluation and take the antibiotics as directed to resolve your infection. If you have worsening of symptoms or any further concerns please return to the hospital for repeat evaluation
[2022-08-01] MEDS: HYDROcodone Bitartrate/Apap 5/325 Tablet PO (03:22)
[2022-08-01] MEDS: Clindamycin HCl 150 MG Capsule 300 MG PO (03:22)
== END 2022-08-01 03:53 | disposition home or self-care (01) ==
LOC: ED 03:20
PROVIDERS: Emergency Provider Emergency Medicine; PCP Student in an Organized Health Care Education/Training Program; Visit Provider Emergency Medicine
DX: K04.7 Periapical abscess without sinus (principal); N18.30 Chronic kidney disease, stage 3 unspecified; E78.5 Hyperlipidemia, unspecified; Z87.891 Personal history of nicotine dependence; K02.9 Dental caries, unspecified; F32.A Depression, unspecified; Z79.899 Other long term (current) drug therapy; M19.90 Unspecified osteoarthritis, unspecified site
CPT/HCPCS: 99283

== ENCOUNTER 2022-10-15 07:56 | Day surgery (SDC) | payer MEDICAID, SELFPAY ==
[2022-10-15] VITALS (9 sets, daily range): BP systolic 103–128; BP diastolic 72–85; PULSE 62–80; RESP 16–18; TEMP 36.2–37.1; O2SAT 93–100; BMI 46.1
[2022-10-15] MEDS: Lactated Ringers 1,000 ML 15 ML IV (08:17)
--- NOTE | 2022-10-15 08:58 | HP.PCM_ITS ---
History and Physical Date of Admission: 10/15/22 Visit Reasons:?HEMORRHOIDS & POSSIBLE TIME FOR SCOPE Chief Complaint: hemorrhoids/possible scope Is patient in pain?: No Allergies [id number]-LSY-AzA Reductase Inhibitor Adverse Reaction (Mild, Verified 09/06/22 14:51) Pain in jointsadhesive Adverse Reaction (Verified 09/06/22 14:51) Rashhornet venom Adverse Reaction (Verified 09/06/22 14:51) Nauseaoxycodone HCl [From Percocet] Adverse Reaction (Verified 09/06/22 14:51) Nausea Medications hydrocodone-acetaminophen 5-325mg 5mg-325mg 1 tab PO Q6H PRN PRN Pain 3 days #12 TABLETS 08/01/22 [Rx] PFSH Medical History? Acid reflux Acute colitis Allergic rhinitis Arthritis Asthma Bleeding internal hemorrhoids Cancer of kidney Chronic headaches CKD (chronic kidney disease), stage III Constipation Depression Edema Genital herpes Hemorrhoids History of back problems Hyperlipidemia hyposexual desire IBS (irritable bowel syndrome) Obstructive sleep apnea Rectal bleeding Rectal bleeding Renal cell carcinoma Restless legs Rosacea Seasonal allergies Vitamin D deficiency Surgical History? bladder sling H/O partial nephrectomy History of cholecystectomy nipple exploration Papilloma of left breast S/P S/P colonoscopy S/P dilation and curettage S/P hemorrhoidectomy S/P hernia repair S/P right knee arthroscopy S/P tonsillectomy S/P total hysterectomy Tubal ligation status Family History? Mother Diabetes Asthma Arthritis Heart disease High cholesterolGrandmother Diabetes Social History? Smoking Status:? Former smoker alcohol intake:? current alcohol intake frequency: holidays/special occasions only substance use type:? does not use caffeine:? Yes what type of physical activity do you participate in:? none seatbelt use:? always do you feel safe at home:? Yes additional social history:? - [facility] [employer] emergency custody of 2 year old grand daughter ? HPI HPI HPI: 56-year-old female presents to discuss hemorrhoids intermittent rectal bleeding.? I have most recently seen her December 28, 2018 and on December 07, 2018 performed a flexible sigmoidoscopy with PPH stapled hemorrhoidopexy.? The flexible sigmoidoscopy at that time showed some mild inflammation in the mid sigmoid and biopsies showed focal acute colitis with some cryptitis and focal crypt abscess of nonspecific indication.? The hemorrhoid problem was felt to been the bleeding source at that time.? This was a very small area of focal colitis and we did not pursue medical treatment at that time as she was asymptomatic.? She had a colonoscopy October 09, 2010 which was normal.? A colonoscopy February 06, 2016 performed because of family history of colon cancer in a first-degree relative demonstrated grade 2 hemorrhoids but otherwise was normal.? 5-year follow-up was recommended. The patient said she had COVID-19 she has been off of all of her medicines.? She is not currently on a fiber supplement.? She complains that particular on the right side she can feel something protruding.? Some intermittent bleeding.? Family history notable for an aunt and uncle right colon problems.? Her most recent colonoscopy perhaps 6 or 7 years ago. Body weight today is 307 pounds with a BMI of 48.1.? This is increased from previously. ROS General General: Yes fatigue; No weight change, appetite, colon cancer, breast cancer or weakness HEENT HEENT: No difficulty swallowing, eye injury, eye surgery, swollen glands or hoarseness Endo Endocrine: No thyroid disease, diabetes mellitus, thyroid cancer, Hair loss, heat intolerance or cold intolerance Skin Skin: No rash or changing moles Musc Musculoskeletal: Yes back problems and arthritis; No rheumatoid arthritis, gout or joint pain Cardio Cardiovascular: No murmur, pacemaker, heart disease, atrial fibrillation, high blood pressure, heart attack, heart stent, palpitations, shortness of breat with exertion or chest pain Psych Psychiatric: Yes depression and anxiety Resp Respiratory: Yes shortness of breath, Yes sleep apnea, No cough, No COPD, Yes asthma, No emphysema and No wheezing Gastro Gastrointestinal: No abdominal pain, No nausea or vomiting, Yes diarrhea, Yes constipation, No blood in stool, No acid reflux, Yes hemorrhoids, No ulcers, No gallbladder problem and No black,tarry stools Román Hematologic: No blood thinners, No blood disorders, No bleeding, No anemia and No blood clots Neuro Neurologic: No system reviewed and no additional complaints, except as documented, No as per HPI, No abnormal gait, No abnormal hearing, No abnormal movements, No abnormal speech, No behavioral changes, No burning sensations, No confusion, No convulsions, No disequilibrium, No dizziness, No localized weakness, No frequent falls, No headache(s), No lack of coordination, No loss of vision, No memory loss, No numbness, No other visual disturbances, No radicular pain, No restless legs, No sensory deficit, No syncope, No tingling, No tremor(s), No weakness and No other Exam Const General: cooperative and no acute distress Nutritional Appearance: obese morbidly obese [facility] Head: normal to inspection Eyes General: appearance normal, both eyes and all related structures Neck Neck: normal visual inspection Resp Effort & Inspection: normal respiratory effort Auscultation: clear to auscultation bilaterally Cardio Rate: regular rate Rhythm: regular rhythm GI Other: I am not able to detect any internal organs Musc Cervical Spine: normal cervical lordosis Skin Other: Right facial rash noted Neuro General: patient alert and patient awake Extrem Other: Lower extremities enlarged Psych Appearance: grossly normal Assessment and Plan Assessment and Plan (1) Family history of colon cancer: ?Status:?Acute ?Plan: Patient's concerns are possibly prolapsing hemorrhoids.? I did not attempt a digital exam today for patient comfort.? There was absolutely nothing external that appeared remarkable. I recommended the patient that she initiate immediately a daily fiber supplement and I provided some suggestions.? She may additionally utilize MiraLAX as needed for further constipation. I did discuss with her that her BMI of 48 does place her at increased post operative risk for bleeding if we were to proceed with a surgical hemorrhoidect dieudonne.? A PPH stapled hemorrhoidopexy can only be performed once.? She is aware that I am very much in favor of medical treatment rather than surgical treatment at this time.? I do propose for her however a colonoscopy with possible biopsy or polypectomy as needed.? She has had an opportunity to ask and have questions answered.? We will schedule procedure at her discretion.? I appreciate the ongoing option of assisting with her surgical care. Copy: Dr. Magdy Nunez M.D., F.A.C.S. (2) Rectal bleeding: ?Status:?Acute ? ? ? Medications: I have examined the patient and the H&P has been reviewed. There are no clinical changes since date of exam. Sam Nunez M.D., F.A.C.S.
--- NOTE | 2022-10-15 10:10 | OP.COLON_ITS ---
Patient Name: Sherron Rodgers Procedure Date: 10/15/2022 9:39 AM Date of : 1965 Age: 56 Procedure: Colonoscopy Indications: Family history of colon cancer in a first-degree relative Providers: Sam Nunez MD Referring MD: Sam Nunez MD Medicines: See the Anesthesia note for documentation of the administered medications Patient Profile: Last Colonoscopy: January 2016. Complications: No immediate complications. Procedure: Pre-Anesthesia Assessment: - Prior to the procedure, a History and Physical was performed, and patient medications and allergies were reviewed. The patient's tolerance of previous anesthesia was also reviewed. The risks and benefits of the procedure and the sedation options and risks were discussed with the patient. All questions were answered, and informed consent was obtained. Prior Anticoagulants: The patient has taken no previous anticoagulant or antiplatelet agents. ASA Grade Assessment: III - A patient with severe systemic disease. After reviewing the risks and benefits, the patient was deemed in satisfactory condition to undergo the procedure. After I obtained informed consent, the scope was passed under direct vision. Throughout the procedure, the patient's blood pressure, pulse, and oxygen saturations were monitored continuously. The adult colonoscope was introduced through the anus and advanced to the cecum, identified by appendiceal orifice and ileocecal valve. The colonoscopy was somewhat difficult due to the patient's body habitus. The patient tolerated the procedure well. The quality of the bowel preparation was good. The ileocecal valve and the appendiceal orifice were photographed. Scope In: 9:50:38 AM Scope Withdrawal Time 0 hours 6 minutes 7 seconds Scope Out: 10:03:16 AM Total Procedure Duration Time 0 hours 12 minutes 38 seconds Findings: The digital rectal exam findings include internal hemorrhoids that prolapse with straining, but spontaneously regress to the resting position (Grade II). There was evidence of a prior ppH hemorrhoidopexy. The exam was otherwise without abnormality. Scattered diverticula were found in the sigmoid colon. Impression: - Internal hemorrhoids that prolapse with straining, but spontaneously regress to the resting position (Grade II) found on digital rectal exam. -Completely healed hemorrhoidopexy without evidence of stenosis - The examination was otherwise normal. - No specimens collected. Recommendation: - Discharge patient to home. - Resume previous diet. - Continue present medications. - Repeat colonoscopy in 5 years for surveillance. Rectal bleeding likely secondary to residual internal hemorrhoids. Possible consideration for future surgical hemorrhoidectomy. Procedure Code(s): --- Professional --- 03827, Colonoscopy, flexible; diagnostic, including collection of specimen(s) by brushing or washing, when performed (separate procedure) Diagnosis Code(s): --- Professional --- K64.1, Second degree hemorrhoids Z98.0, Intestinal bypass and anastomosis status Z80.0, Family history of malignant neoplasm of digestive organs CPT copyright 2017 [employer]. All rights reserved. The codes documented in this report are preliminary and upon silverware cleaner review may be revised to meet current compliance requirements. Sam Nunez MD 10/15/2022 10:10:22 AM This report has been signed electronically. Number of Addenda: 0 Note Initiated On: 10/15/2022 9:39 AM
--- NOTE | 2022-10-15 10:11 | OP.CCLET_ITS ---
10/15/2022 Magdy Del Cid [address] [id number] Re : Colonoscopy procedure for Sherron Rodgers Dear Dr. Del Cid This procedure was performed on Saturday, October 15, 2022. My impressions and recommendations are as follows: Impressions : - Internal hemorrhoids that prolapse with straining, but spontaneously regress to the resting position (Grade II) found on digital rectal exam. -Completely healed hemorrhoidopexy without evidence of stenosis - The examination was otherwise normal. - No specimens collected. Recommendations : - Discharge patient to home. - Resume previous diet. - Continue present medications. - Repeat colonoscopy in 5 years for surveillance. Rectal bleeding likely secondary to residual internal hemorrhoids. Possible consideration for future surgical hemorrhoidectomy. My findings are described in the full procedure note, which is enclosed. If I can be of further assistance, please feel free to contact me at Doctor phone number(s): Work: . Sincerely, Sam Nunez MD 10/15/2022 10:10:22 AM This report has been signed electronically.
== END 2022-10-15 10:52 | disposition home or self-care (01) ==
LOC: EN 07:57 → AC 07:59
PROVIDERS: PCP Student in an Organized Health Care Education/Training Program; Referring Provider Student in an Organized Health Care Education/Training Program; Visit Provider Surgery
PROC: 0DJD8ZZ Inspection of Lower Intestinal Tract, Via Natural or Artificial Opening Endoscopic (ICD-10-PCS; CPT 45378; principal; 2022-10-15 09:10)
DX: K64.1 Second degree hemorrhoids (principal); Z87.891 Personal history of nicotine dependence; K52.9 Noninfective gastroenteritis and colitis, unspecified; Z80.0 Family history of malignant neoplasm of digestive organs; Z98.0 Intestinal bypass and anastomosis status; G47.33 Obstructive sleep apnea (adult) (pediatric); K58.9 Irritable bowel syndrome, unspecified; K21.9 Gastro-esophageal reflux disease without esophagitis
CPT/HCPCS: 45378; J7120; J2405

== ENCOUNTER → 2023-10-12 | Outpatient (CLI) | payer MEDICAID, SELFPAY ==
--- NOTE | 2023-10-12 14:55 | VDLE_ITS ---
VL/Venous Duplex US, Unilateral Interpretation Summary Deep veins of the left lower extremity are patent and compressible segmentally. There is no evidence of left lower extremity deep vein thrombosis. The left great saphenous vein freddy ears patent and compressible segmentally. Ordering Physician: LAURA DALEY Referring Physician: Magdy Del Cid Performed By: Biranna Vee RVT
== END | disposition home or self-care (01) ==
LOC: CVS 14:51
PROVIDERS: PCP Student in an Organized Health Care Education/Training Program
DX: M79.89 Other specified soft tissue disorders (principal)
CPT/HCPCS: 93971